=== PATIENT | female | born 1980 | race Caucasian/White ===

== ENCOUNTER 2021-08-13 19:09 | Emergency (ER) | payer BC, OTHER ==
[~2021-08-13] VITALS: Ht 167.6 cm; Wt 128.4 kg
[~2021-08-13 19:09] MED LIST: ARMOUR THYROID60 MG PO; LOSARTAN-HCTZ1 EAC2 PO
== END 2021-08-13 19:30 | disposition home or self-care (01) ==
LOC: ER 19:24
DX: M54.2 Cervicalgia (principal); M54.50 Low back pain, unspecified; V43.52XA Car driver injured in collision with other type car in traffic accident, initial encounter; Y92.488 Other paved roadways as the place of occurrence of the external cause; Z98.84 Bariatric surgery status
CPT/HCPCS: 99282

== ENCOUNTER 2022-09-27 21:38 | Emergency (ER) | payer BC ==
[~2022-09-27] VITALS: Ht 167.6 cm; Wt 128.4 kg
[2022-09-27] MEDS ORDERED: KETOROLAC TROMETHAMINE 30 MG/ML VIAL IV STA (22:16)
[2022-09-27] MEDS ORDERED: METOCLOPRAMIDE HCL 10 MG/2ML VIAL IV ONE (22:30)
[2022-09-27 22:38] LABS: BASOPHILS # (AUTO) 0.1 (0.0-0.1); BASOPHILS % 0.9 % (0.0-1.0); EOSINOPHILS # (AUTO) 0.1 (0.0-0.4); EOSINOPHILS % 1.3 % (0.0-6.0); HEMATOCRIT 38.3 % (34.2-44.1); HEMOGLOBIN 12.7 g/dL (12.0-16.0); LYMPHOCYTES # (AUTO) 3.2 (1.0-3.2); LYMPHOCYTES % 35.7 % (18.0-39.1); MEAN CORPUSCULAR HEMOGLOBIN 29.5 pg (28-32); MEAN CORPUSCULAR HGB CONC 33.2 g/dL (31-35); MEAN CORPUSCULAR VOLUME 89.1 fL (81-99); MONOCYTES # (AUTO) 0.6 (0.2-0.8); MONOCYTES % 6.2 % (4.4-11.3); NEUTROPHILS % 55.7 % (38.7-80.0); PLATELET COUNT 281 x10e3/uL (140-360); RED CELL DISTRIBUTION WIDTH 12.6 % (11.7-14.4)
[2022-09-27 22:51] LABS: ALBUMIN 3.9 g/dL (3.5-5.0); ALBUMIN/GLOBULIN RATIO 1.3 (0.8-2.0); ANION GAP 11.9 mmol/L (8-16); CALCIUM 9.3 mg/dL (8.4-10.2); CREATININE, SERUM 0.7 mg/dL (0.57-1.11); POTASSIUM 3.9 mmol/L (3.5-5.1)
[2022-09-28] MEDS ORDERED: FIORICET 50-301 EACH PO (00:11)
[2022-09-28] MEDS ORDERED: ONDANSETRON ODT4 MG PO (00:11)
[2022-09-28 00:12] VITALS: BP 131/74
== END 2022-09-28 00:18 | disposition home or self-care (01) ==
LOC: ER 21:42
DX: I10 Essential (primary) hypertension (principal); G43.009 Migraine without aura, not intractable, without status migrainosus; M32.9 Systemic lupus erythematosus, unspecified; Z98.84 Bariatric surgery status
CPT/HCPCS: 36415; 80053; 85025; 99283; J1885; J2765